=== PATIENT | male | born 1955 | race Hispanic/Latino ===

== ENCOUNTER 2022-05-29 14:38 | Emergency (ER) | payer MEDICARE ==
[~2022-05-29] VITALS: Ht 165.1 cm; Wt 72.6 kg
[2022-05-29] MEDS ORDERED: DONNATAL/LIDOCAINE/MAALOX 30 ML SUSP PO STA (14:57)
[2022-05-29] MEDS ORDERED: OMEPRAZOLE40 MG PO (15:08)
[2022-05-29] MEDS ORDERED: LIDOCAINE VISC 2% SOLN 15 ML UDC ONE ×2 (15:17→15:20)
[2022-05-29] MEDS ORDERED: MAGNESIUM/ALUMINUM/SIMETHICONE 30 ML UDC ONE ×2 (15:17→15:20)
== END 2022-05-29 15:24 | disposition home or self-care (01) ==
LOC: ER 14:46
DX: R10.13 Epigastric pain (principal); K21.9 Gastro-esophageal reflux disease without esophagitis; R11.2 Nausea with vomiting, unspecified; R19.7 Diarrhea, unspecified
CPT/HCPCS: 93005; 99282